=== PATIENT | female | born 1980 | race Caucasian/White ===

== ENCOUNTER 2016-12-16 16:36 | Emergency (ER) | payer MEDICAID ==
--- NOTE | 2016-12-16 17:06 | ER Document Report ---
ED Medical Screen (RME) - General Stated Complaint: COUGH Time seen by provider: 17:04 Mode of Arrival: Ambulatory Information source: Patient Notes: 36-year-old female presents to ED for productive cough with white phlegm fever and chills congestion tightness for week and a half. States she's had fevers and sweats today but she does not know how high her temperature was as she does has not taken it. Was menstrual period 12/09/2016. I have greeted and performed a rapid initial assessment of this patient. A comprehensive ED assessment and evaluation of the patient, analysis of test results and completion of medical decision making process will be conducted by an additional ED providers. TRAVEL OUTSIDE OF THE [place] IN LAST 30 DAYS: No - Related Data Allergies/Adverse Reactions: codeine [Codeine] Allergy (Verified 06/30/15 10:43) Past Medical History Neurological Medical History: Reports: Hx Migraine Musculoskeltal Medical History: Reports Hx Arthritis - Rheumatoid arthritis, Reports Hx Musculoskeletal Deformity Past Surgical History: Reports: Hx Gynecologic Surgery - tubal ligation, Hx Tubal Ligation
--- NOTE | 2016-12-16 19:40 | ER Document Report ---
ED General - General Mode of Arrival: Ambulatory Information source: Patient TRAVEL OUTSIDE OF THE [place] IN LAST 30 DAYS: No - HPI Patient complains to provider of: Cough Onset: Other - 1.5 weeks Associated symptoms: Other - see above - General Chief Complaint: Cough Stated Complaint: COUGH Notes: 36 year old female with history of bronchitis presents to the ED complaining of a cough for the past 1.5 weeks. Patient denies fever. Patient states that she is unable to take off work and must go in tonight. Patient denies history of asthma. Patient is not on any medications. Patient's primary care provider is at [facility]. (T[facility]UCKER) - Related Data Allergies/Adverse Reactions: codeine [Codeine] Allergy (Verified 12/16/16 17:04) Past Medical History - General Information source: Patient Last Menstrual Period: 12/09/16 - Social History Smoking Status: Never Smoker Cigarette use (# per day): No Chew tobacco use (# tins/day): No Frequency of alcohol use: None Drug Abuse: None Family History: Arthritis, DM, Thyroid Disfunction, Other - Seizures Patient has suicidal ideation: No Patient has homicidal ideation: No Neurological Medical History: Reports: Hx Migraine Renal/ Medical History: Denies: Hx Peritoneal Dialysis Musculoskeltal Medical History: Reports Hx Arthritis - Rheumatoid arthritis, Reports Hx Musculoskeletal Deformity Past Surgical History: Reports: Hx Gynecologic Surgery - tubal ligation, Hx Tubal Ligation Review of Systems - Review of Systems Constitutional: No symptoms reported. denies: Fever EENT: No symptoms reported Cardiovascular: No symptoms reported Respiratory: See HPI, Cough Gastrointestinal: No symptoms reported Genitourinary: No symptoms reported Female Genitourinary: No symptoms reported Musculoskeletal: No symptoms reported Skin: No symptoms reported Hematologic/Lymphatic: No symptoms reported Neurological/Psychological: No symptoms reported -: Yes All other systems reviewed and negative Physical Exam - Vital signs Interpretation: Tachycardic - General General appearance: Alert In distress: None - HEENT Head: Normocephalic, Atraumatic Eyes: Normal Extraocular movements intact: Yes Pupils: PERRL - Respiratory Respiratory status: No respiratory distress Breath sounds: Normal - Cardiovascular Rhythm: Regular Heart sounds: Normal auscultation - Abdominal Inspection: Normal Distension: No distension Tenderness: Nontender - Back Back: Normal - Extremities General upper extremity: Normal inspection, Normal ROM General lower extremity: Normal inspection, Normal ROM - Neurological Neuro grossly intact: Yes Cognition: Normal Orientation: AAOx4 [place] Coma Scale Eye Opening: Spontaneous [place] Coma Scale Verbal: Oriented [place] Coma Scale Motor: Obeys Commands [place] Coma Scale Total: 15 Speech: Normal - Psychological Associated symptoms: Normal affect, Normal mood - Skin Skin Temperature: Warm Skin Moisture: Dry Skin Color: Normal Discharge - Discharge Clinical Impression: Upper respiratory tract infection Condition: Stable Disposition: HOME, SELF-CARE Instructions: Upper Respiratory Illness ([facility]) Additional Instructions: Upper Respiratory Illness You have a viral infection of the respiratory passages -- a "cold." This common infection causes nasal congestion, drainage, and often sore throat and cough. It is caused by a virus and is highly contagious. The disease usually lasts a week or more, though the worst symptoms are usually over in 3 or 4 days. There is no "cure" for the viral infection -- it must run its course. If there is a complication, such as bacterial infection in the nose, sinuses, middle ear, or bronchial tubes, antibiotics may be required, but antibiotics won 't affect the virus. If you smoke, you should STOP!! Drink plenty of fluids. A humidifier may help. An expectorant medication or decongestant may make you more comfortable. Use acetaminophen or ibuprofen for fever or aches. See the doctor if fever persists over two or three days, if there is any significant worsening of your symptoms, or if you simply fail to improve as expected. Forms: Return to Work Referrals: CONCETTA WALTON DO [Primary Care Provider] - Follow up in 3-5 days Scribe Documentation - Scribe Written by Peter:: Peter Chu, 12/16/[id number] acting as scribe for :: [employer]
[2016-12-16] MEDS ORDERED: ALBUTEROL SULFATE HFA (90 MCG/PUFF) 8 GM MDI (1 MDI/ER DISP) IH ONE (19:56)
[2016-12-16 20:07] VITALS: BP 150/92
== END 2016-12-16 20:04 | disposition home or self-care (01) ==
LOC: ER 16:36
DX: J06.9 Acute upper respiratory infection, unspecified (principal); R05 Cough; R00.0 Tachycardia, unspecified; Z88.5 Allergy status to narcotic agent
CPT/HCPCS: 99283; 87804; 71020; J3490

== ENCOUNTER 2017-05-29 13:04 | Emergency (ER) | payer MEDICAID ==
[2017-05-29 13:09] VITALS: BP 150/94
--- NOTE | 2017-05-29 13:42 | ER Document Report ---
ED Extremity Problem, Lower - General Chief Complaint: Ankle Pain Stated Complaint: ANKLE INJURY Time Seen by Provider: 05/29/17 13:27 Mode of Arrival: Ambulatory Information source: Patient TRAVEL OUTSIDE OF THE [place] IN LAST 30 DAYS: No - HPI Patient complains to provider of: Pain Location: Ankle Occurred: Other - MONTHS Onset/Duration: Gradual, Constant Quality of pain: Dull Severity: Moderate Pain Level: 2 Recent injury: No Associated symptoms: denies: Chest pain, Chills, Dizzy, Fainting, Fever, [place] a crack, [place] a pop, Hurts to breath, Painful ambulation, Rapid heart rate, Seizure, Short of breath, Sweaty, Unable to bear weight, Weak Exacerbated by: Movement, Walking Relieved by: Nothing Other injuries: Patient arrives with complaints of right lateral ankle pain. She states the pain is been present for months. It is gotten much worse over the last few weeks. She has seen her primary care physician for this and reports having normal x-rays. She has an ultrasound and MRI scheduled in 4 days. She comes emergency department because she continues to have pain. No recent injuries or falls. No fever. No redness. No numbness, tingling, weakness. She denies any other complaints at this time. - Related Data Allergies/Adverse Reactions: codeine [Codeine] Allergy (Verified 12/16/16 17:04) Past Medical History - Social History Smoking Status: Unknown if Ever Smoked Family History: Arthritis, DM, Thyroid Disfunction, Other - Seizures Neurological Medical History: Reports: Hx Migraine Renal/ Medical History: Denies: Hx Peritoneal Dialysis Musculoskeltal Medical History: Reports Hx Arthritis - Rheumatoid arthritis, Reports Hx Musculoskeletal Deformity Past Surgical History: Reports: Hx Gynecologic Surgery - tubal ligation, Hx Tubal Ligation Review of Systems - Review of Systems -: Yes All other systems reviewed and negative Physical Exam - Vital signs Vitals: Temp Pulse Resp BP Pulse Ox 98 F 89 20 150/94 H 98 05/29/17 13:06 05/29/17 13:06 05/29/17 13:06 05/29/17 13:06 05/29/17 13:06 - Notes Notes: GENERAL: alert, cooperative, nontoxic, no distress. HEAD: normocephalic, atraumatic EYES: conjunctiva pink without discharge, no external redness or swelling. EARS: no external swelling, no external redness NOSE: atraumatic, no external swelling MOUTH/THROAT: mucous membranes moist and pink NECK: soft, supple, full range of motion, no meningismus. CHEST: no distress, lungs clear and equal throughout. No wheezing, rales, rhonchi. CARDIAC: regular rate and rhythm, no murmur, normal capillary refill, normal pulses. BACK: full range of motion, no CVA tenderness. EXTREMITIES: full range of motion of all extremities. No redness, no swelling. Tenderness to palpation to the right lateral ankle. No redness. Achilles is intact with a normal Galicia's test. No calf tenderness, swelling, redness. Normal pulse and sensation. NEURO: alert and oriented 3, no focal deficits, full range of motion of all extremities. PYSCH: appropriate mood, affect. Patient is cooperative. SKIN: pink, warm, dry, no rash. Course - Re-evaluation Re-evalutation: 05/29/17 13:39 Patient is nontoxic appearing with stable vitals. She has had right ankle pain for months and it is worsened over the last few weeks. She seen her family physician reports already having a negative x-ray. She has an MRI and ultrasound scheduled in 4 days. She had no new injuries. She arrives with continued pain. No signs of infection. Exam is benign. The patient will be discharged home with a prescription for Voltaren and tramadol. Follow-up with her doctor as scheduled. Follow-up sooner for increased pain, fever, redness, any further concerns. The patient is noted to have elevated blood pressure during today's emergency department visit. The patient was informed of this finding. The patient was instructed that this may be related to pre-hypertension and requires further evaluation with a primary care provider. The patient has no hypertensive symptoms at this time. - Vital Signs Vital signs: Temp Pulse Resp BP Pulse Ox 98 F 89 20 150/94 H 98 05/29/17 13:06 05/29/17 13:06 05/29/17 13:06 05/29/17 13:06 05/29/17 13:06 Discharge - Discharge Clinical Impression: Chronic pain of right ankle Condition: Stable Disposition: HOME, SELF-CARE Instructions: Sprained Ankle ([facility]), Oral Narcotic Medication ([facility]) Additional Instructions: Take medications as prescribed. Follow-up as scheduled on Wednesday for your MRI and ultrasound. Follow-up sooner for increased pain, fever, redness, swelling, any further concerns. Your blood pressure was elevated during today's visit. Have this rechecked with your doctor. The medication you were prescribed today may cause drowsiness. Do not drive or operate heavy machinery while taking this medication. Prescriptions: Diclofenac Sodium [Voltaren] 75 mg PO BID #20 tablet. Tramadol HCl [Ultram] 50 mg PO TID PRN #10 tablet PRN Reason: Forms: Elevated Blood Pressure Referrals: ZAY HURST MD [ACTIVE STAFF] - Follow up as needed
== END 2017-05-29 14:04 | disposition home or self-care (01) ==
LOC: ER 13:04
DX: M25.571 Pain in right ankle and joints of right foot (principal); G89.29 Other chronic pain
CPT/HCPCS: 99283

== ENCOUNTER 2018-03-23 07:46 | Day surgery (SDC) | payer MEDICAID ==
[2018-03-16 11:00] LABS: HEMATOCRIT 38.6 % (36.0-47.0); HEMOGLOBIN 13.1 g/dL (12.0-15.5); MEAN CORPUSCULAR HEMOGLOBIN 27.9 pg (27.0-33.4); MEAN CORPUSCULAR HGB CONC 33.9 g/dL (32.0-36.0); MEAN CORPUSCULAR VOLUME 82 fl (80-97); PLATELET COUNT 297 10^3/uL (150-450); RED BLOOD COUNT 4.69 10^6/uL (3.72-5.28); RED CELL DISTRIBUTION WIDTH 13.7 % (11.5-14.0); WHITE BLOOD COUNT 5.5 10^3/uL (4.0-10.5)
[2018-03-16 11:14] LABS: APPEARANCE,URINE CLEAR; BILIRUBIN,URINE NEGATIVE (NEGATIVE); COLOR,URINE YELLOW; GLUCOSE, URINE NEGATIVE (NEGATIVE); KETONES,URINE NEGATIVE (NEGATIVE); LEUKOCYTE ESTERASE,URINE NEGATIVE (NEGATIVE); NITRITE,URINE NEGATIVE (NEGATIVE); PROTEIN,URINE NEGATIVE (NEGATIVE); URINE SPECIFIC GRAVITY 1.013; UROBILINOGEN,URINE NEGATIVE mg/dL (<2.0)
[2018-03-16 11:18] LABS: ANION GAP 11 (5-19); BLOOD UREA NITROGEN 12 mg/dL (7-20); CALCIUM 9.5 mg/dL (8.4-10.2); CARBON DIOXIDE 28 mmol/L (22-30); CHLORIDE 104 mmol/L (98-107); GLUCOSE 90 mg/dL (75-110); POTASSIUM 4.5 mmol/L (3.6-5.0); SODIUM 142.6 mmol/L (137-145)
--- NOTE | 2018-03-16 12:04 | RADIOLOGY REPORT (SQ) ---
EXAM DESCRIPTION: CHEST PA/LATERAL COMPLETED DATE/TIME: 03/16/2018 10:07 am REASON FOR STUDY: PRE-OP COMPARISON: Two-view chest 12/16/2016 EXAM PARAMETERS: NUMBER OF VIEWS: two views TECHNIQUE: Digital Frontal and Lateral radiographic views of the chest acquired. RADIATION DOSE: NA LIMITATIONS: none FINDINGS: LUNGS AND PLEURA: No opacities, masses or pneumothorax. No pleural effusion. MEDIASTINUM AND HILAR STRUCTURES: No masses or contour abnormalities. HEART AND VASCULAR STRUCTURES: Heart normal size. No evidence for failure. BONES: No acute findings. HARDWARE: None in the chest. OTHER: No other significant finding. IMPRESSION: NO SIGNIFICANT RADIOGRAPHIC FINDING IN THE CHEST. TECHNICAL DOCUMENTATION: JOB ID: [id number] [employer]- All Rights Reserved Reading location - IP/workstation name: [email or web address]
--- NOTE | 2018-03-16 13:19 | EKG REPORT ---
SEVERITY:- ABNORMAL ECG - SINUS RHYTHM LVH BY VOLTAGE NONSPECIFIC T ABNORMALITIES, INFERIOR LEADS : Confirmed by: Micah Alexis MD 16-Mar-2018 13:18:14
[~2018-03-23 07:46] MED LIST: BUPIVACAINE HCL 0.5%-EPI 1:200000 INJ/PF 30 ML VIAL ONE; CEFAZOLIN SODIUM 2 GM in NORMAL SALINE 100 ML IV PRN; LACTATED RINGERS 1000 ML IV PRN; LIDOCAINE 0.5% INJ-PF (5 MG/ML) 50 ML SDV SUBCUT PRN
[2018-03-23] MEDS ORDERED: PROPOFOL INJ 200 MG/20 ML VIAL IV ONE (09:33)
[2018-03-23] MEDS ORDERED: MIDAZOLAM 2 MG/2 ML INJ ONE (09:33)
[2018-03-23] MEDS ORDERED: FENTANYL CITRATE INJ/PF 100 MCG/2 ML AMPUL ONE (09:33)
[2018-03-23] MEDS ORDERED: MEPERIDINE HCL/PF INJ 25 MG/1 ML DISP.SYRIN IV PRN (11:01)
[2018-03-23] MEDS ORDERED: DIPHENHYDRAMINE HCL 50 MG/ML VIAL IV PRN (11:01)
[2018-03-23] MEDS ORDERED: PROMETHAZINE HCL INJ 25 MG/1 ML VIAL IV PRN (11:01)
[2018-03-23] MEDS ORDERED: FENTANYL CITRATE INJ/PF 100 MCG/2 ML AMPUL IV PRN ×3 (11:01)
--- NOTE | 2018-03-23 11:14 | Operative Report ---
Operative Report DATE OF SURGERY: 03/23/18 PREOPERATIVE DIAGNOSIS: Right lateral ankle lipoma/ganglion cyst POSTOPERATIVE DIAGNOSIS: Right lateral ankle angiolipoma OPERATION: Resection right lateral ankle mass SURGEON: ELIZABETH FERREIRA ANESTHESIA: LMAC TISSUE REMOVED OR ALTERED: Specimen to pathology ESTIMATED BLOOD LOSS: 25 PROCEDURE: With the patient in a sloppy left lateral decubitus position on the operating table the right lower extremities prepped and draped in sterile fashion. The skin overlying an area inferior and posterior to the lateral malleolus is infiltrated with a combination of Xylocaine, Marcaine, and epinephrine. Subsequently a 12-1/2 cm transverse incision was made over the mass. Blunt dissection was used to excise the underlying mass and a marginal fashion. The wound is then irrigated. Hemostasis obtained with electrocautery. The wound was reapproximated using interrupted Vicryl followed by nylon. A sterile compressive dressing is applied and the patient's return to the PACU in satisfactory condition.
[2018-03-23] MEDS ORDERED: LIDOCAINE 1%/EPINEPHRINE INJ 20 ML VIAL ONE (11:19)
[2018-03-23] MEDS ORDERED: OXYCODONE HCL IR 5 MG TABLET PO PRN (11:24)
[2018-03-23] MEDS ORDERED: ONDANSETRON 4 MG TAB.RAPDIS SL PRN (11:25)
[2018-03-23] MEDS: FENTANYL CITRATE INJ/PF 100 MCG/2 ML AMPUL ONE ×2 (11:28→12:23)
[2018-03-23 13:31] VITALS: BP 127/78
[2018-03-23] MEDS ORDERED: ONDANSETRON HCL INJ/PF 4 MG/2 ML SDV ONE (15:10)
== END 2018-03-23 13:25 | disposition home or self-care (01) ==
LOC: OROUT 07:46
PROVIDERS: ATTEND Orthopaedic Surgery
DX: M67.40 Ganglion, unspecified site (principal); E66.9 Obesity, unspecified; M19.90 Unspecified osteoarthritis, unspecified site; J45.909 Unspecified asthma, uncomplicated; Z68.41 Body mass index [BMI] 40.0-44.9, adult; Z88.5 Allergy status to narcotic agent
CPT/HCPCS: 93005; 36415; 85027; 81025; 80048; 81001; 88305 ×2; 71046; 93010; 27630; J2250; J3490 ×3; J0690; J3010; J2405; J2704; 1470

== ENCOUNTER 2018-06-05 21:52 | Emergency (ER) | payer MEDICAID ==
[2018-06-05 22:51] VITALS: BP 143/80
--- NOTE | 2018-06-05 23:23 | RADIOLOGY REPORT (SQ) ---
EXAM DESCRIPTION: XR WRIST 3 OR MORE VIEWS COMPLETED DATE/TME: 06/05/2018 00:00 CLINICAL HISTORY: 37 years Female, Wrist pain s/p fall COMPARISON: None. Findings: Bones, joints, and soft tissues of the LEFT XR WRIST 3 OR MORE VIEWS appear intact. IMPRESSION: No acute findings.
[2018-06-05] MEDS ORDERED: HYDROCODONE/ACETAMINOPHEN 5-325 MG (6 TAB/ER DISP) PO PRN (23:51)
--- NOTE | 2018-06-05 23:54 | ER Document Report ---
HPI - HPI Patient complains to provider of: Left wrist injury Onset: This evening Onset/Duration: Sudden Quality of pain: Achy Pain Level: 4 Context: Patient states she slipped on a wet floor landing on an outstretched hand. Patient complains of left wrist tenderness. Patient is right-hand dominant. Associated Symptoms: Other - Left wrist pain Exacerbated by: Movement Relieved by: Denies Similar symptoms previously: No Recently seen / treated by doctor: No - ROS ROS below otherwise negative: Yes Systems Reviewed and Negative: Yes All other systems reviewed and negative - NEURO Neurology: DENIES: Headache - GASTROINTESTINAL Gastrointestinal: DENIES: Nausea - MUSCULOSKELETAL Musculoskeletal: REPORTS: Extremity pain - L wrist. DENIES: Swelling - DERM Skin Color: Normal Skin Problems: None Past Medical History - General Information source: Patient - Social History Smoking Status: Never Smoker Frequency of alcohol use: None Drug Abuse: None Occupation: None Lives with: Family Family History: Arthritis, DM, Thyroid Disfunction, Other - Seizures Patient has suicidal ideation: No Patient has homicidal ideation: No Pulmonary Medical History: Reports: Hx Asthma Denies: Hx Bronchitis, Hx COPD, Hx Pneumonia Neurological Medical History: Reports: Hx Migraine Renal/ Medical History: Denies: Hx Peritoneal Dialysis Musculoskeletal Medical History: Reports Hx Arthritis - RHEUMATOID, Reports Hx Musculoskeletal Deformity Past Surgical History: Reports: Hx Gynecologic Surgery - tubal ligation, Hx Tubal Ligation - Immunizations Hx Diphtheria, Pertussis, Tetanus Vaccination: Yes Vertical Provider Document - CONSTITUTIONAL Agree With Documented VS: Yes Exam Limitations: No Limitations General Appearance: WD/WN, No Apparent Distress - INFECTION CONTROL TRAVEL OUTSIDE OF THE [place] IN LAST 30 DAYS: No - HEENT HEENT: Atraumatic, Normocephalic - NECK Neck: Normal Inspection, Supple - RESPIRATORY Respiratory: Breath Sounds Normal, No Respiratory Distress - CARDIOVASCULAR Cardiovascular: Regular Rate, Regular Rhythm Pulses: Normal: Radial - BACK Back: Normal Inspection - MUSCULOSKELETAL/EXTREMETIES Musculoskeletal/Extremeties: MAEW, Tender - Left wrist tenderness over dorsal aspect of left distal forearm. Normal skin color and temperature. No deformity.. negative: Edema, Eccymosis - NEURO Level of Consciousness: Awake, Alert, Appropriate Motor/Sensory: No Motor Deficit - DERM Integumentary: Warm, Dry, No Rash Course - Vital Signs Vital signs: Temp Pulse Resp BP Pulse Ox 98.1 F 80 20 143/80 H 100 06/05/18 22:50 09/02/18 22:50 06/05/18 22:50 06/05/18 22:50 06/05/18 22:50 - Diagnostic Test Radiology reviewed: Image reviewed, Reports reviewed Procedures - Immobilization Left Wrist Pre-Proc Neuro Vasc Exam: Normal Immobilizer type: Cock-up Performed by: RN Post-Proc Neuro Vasc Exam: Normal Alignment checked and good: Yes Discharge - Discharge Clinical Impression: Left wrist sprain Qualifiers: Encounter type: initial encounter Qualified Code(s): S63.502A - Unspecified sprain of left wrist, initial encounter Condition: Stable Disposition: HOME, SELF-CARE Instructions: Ice & Elevation ([facility]), Wrist Sprain ([facility]), Temporary Splint ([facility]) Additional Instructions: Return immediately for any new or worsening symptoms Followup with your primary care provider, call tomorrow to make a followup appointment Follow-up with orthopedics for any persistent pain or problems Wear splint for the next 4-5 days and then remove. If still having pain follow- up with orthopedic Prescriptions: Naproxen [Naprosyn 250 Nmg Tablet] 1 tab PO BID #14 tablet Referrals: NIC RAMACHANDRAN PA-C [Primary Care Provider] - Follow up as needed [facility] [Provider Group] - Follow up as needed
== END 2018-06-06 00:44 | disposition home or self-care (01) ==
LOC: ER 21:52
DX: S63.502A Unspecified sprain of left wrist, initial encounter (principal); W01.0XXA Fall on same level from slipping, tripping and stumbling without subsequent striking against object, initial encounter; J45.909 Unspecified asthma, uncomplicated
CPT/HCPCS: 99283; 73110; L3908